=== PATIENT | male | born 1985 | race Caucasian/White ===

== ENCOUNTER 2018-12-30 16:25 | Emergency (ER) | payer OTHER ==
[2018-12-30 16:30] VITALS: RESP 18; TEMP 97.2
[2018-12-30] MEDS ORDERED: PROPARACAINE 0.5% OPHTH DROPS 15 ML BTL BOTH EYES STA (17:20)
--- NOTE | 2018-12-30 18:06 | ED ---
General Adult HPI - General Chief complaint: Eye Problems Stated complaint: FB eye Time Seen by Provider: 12/30/18 16:47 Source: patient, RN notes reviewed, old records reviewed Mode of arrival: EMS Limitations: no limitations - History of Present Illness Initial comments: 33-year-old male patient no pertinent past medical history presents to ED with pain in left eye. 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 Patient has had a foreign object sensation in left eye for approximately 1 hour. Patient is unable to visualize any foreign object. Patient had flushed with normal saline. Patient states the eyes are tearing however states that his visual acuity is at baseline. Patient is not a contact lens user. Patient does not have any other complaints. Systemic: Pt denies fatigue, myalgia, fever/chills, rash. Pt denies weakness, night sweats, weight loss. Neuro: Pt denies headache, visual disturbances, syncope or pre-syncope. HEENT: Pt denies otalgia, rhinorrhea, pharyngitis or notable lymphadenopathy. Cardiopulmonary: Pt denies chest pain, SOB, heart palpitations, dyspnea on exertion. Abdominal/GI: Pt denies abdominal pain, n/v/d. : Pt denies dysuria, burning w/ urination, frequency/urgency. Denies new onset urinary or bowel incontinence. MSK: Pt denies myalgia, loss of strength or function in extremities. Neuro: Pt denies new onset weakness, paresthesias. - Related Data Previous Rx's Medication Instructions Recorded Omeprazole [PriLOSEC] 20 mg PO AC-BID #28 cap 11/13/14 Gentamicin 0.3% Ophth Oint [Gentak 1 applic BOTH EYES Q8H 5 Days #1 12/30/18 0.3% Ophth Oint] tube Allergies Allergy/AdvReac Type Severity Reaction Status Date / Time No Known Allergies Allergy Verified 12/30/18 16:29 Review of Systems ROS Statement: Those systems with pertinent positive or pertinent negative responses have been documented in the HPI. ROS Other: All systems not noted in ROS Statement are negative. Past Medical History Past Medical History: No Reported History History of Any Multi-Drug Resistant Organisms: None Reported Past Surgical History: Cholecystectomy Past Psychological History: No Psychological Hx Reported Smoking Status: Never smoker Past Alcohol Use History: None Reported Past Drug Use History: None Reported General Exam - General Exam Comments Initial Comments: Constitutional: NAD, AOX3, Pt has pleasant affect. HEENT: NC/AT, trachea midline, neck supple, no lymphadenopathy. Posterior pharynx non erythematous, without exudates. External ears appear normal, without discharge. Mucous membranes moist. Eyes PERRLA, EOM intact. Some tearing noted left eye, no injection. Fluorescein stain revealed small corneal abrasion at approximately 3:00. Patient visual acuity 20/20. There is no scleral icterus. No pallor noted. Cardiopulmonary: RRR, no murmurs, rubs or gallops, no JVD noted. Lungs CTAB in anterior and posterior mon. No peripheral edema. Abdominal exam: Abdomen soft and non-distended. Abdomen non-tender to palpation in all 4 quadrants. Bowel sounds active in LLQ. No hepatosplenomegaly. No ecchymosis Neuro: CN II-XII grossly intact. No nuchal rigidity. MSK: No posterior calf tenderness bilaterally, homans sign negative bilaterally. Posterior tibialis and radial pulse +2 bilaterally. Sensation intact in upper and lower extremities. Full active ROM in upper and lower extremities, 5/5 stregnth. Limitations: no limitations Course Vital Signs 12/30/18 12/30/18 16:27 18:14 Temperature 97.2 F L Pulse Rate 91 84 Respiratory 18 18 Rate Blood Pressure 126/82 117/76 O2 Sat by Pulse 98 99 Oximetry Medical Decision Making - Medical Decision Making 33-year-old male patient comes to ED with foreign body sensation after feeling something go into his eye when putting on a mask earlier today. This has been ongoing for approximately one hour. Patient previously flushed with normal saline. Patient felt signs stable, afebrile. Physical exam revealed small corneal abrasion at 3:00. Patient visual acuity baseline, 2020. Patient contact lens user. Patient stated at discharge that foreign body sensation was no longer present. Patient discharged with antibiotic eyedrops. Patient to follow up with primary care provider in 1-2 days. Patient given ophthalmology referral if symptoms persist. Patient to return to ED if new signs or symptoms develop or if condition worsens in any way. Case discussed in depth with Dr. Rosa. Disposition Clinical Impression: Corneal abrasion, left Disposition: HOME SELF-CARE Condition: Good Instructions (If sedation given, give patient instructions): Corneal Abrasion ( ED) Additional Instructions: Patient to adhere to previously discussed treatment plan and will take medication(s) as directed. Patient to follow up with PCP in 1-2 days. Patient to return to ED if symptoms do not improve. Prescriptions: Gentamicin 0.3% Ophth Oint [Gentak 0.3% Ophth Oint] 1 applic BOTH EYES Q8H 5 Days #1 tube Is patient prescribed a controlled substance at d/c from ED?: No Referrals: Anabella Brewer MD [Primary Care Provider] - 1-2 days Marco A Almanzar MD [STAFF PHYSICIAN] - 1-2 days Time of Disposition: 18:06
[2018-12-30 18:15] VITALS: BP 117/76; PULSE 84
== END 2018-12-30 18:14 | disposition home or self-care (01) ==
LOC: EC 16:25
DX: S05.02XA Injury of conjunctiva and corneal abrasion without foreign body, left eye, initial encounter (principal); W22.8XXA Striking against or struck by other objects, initial encounter
CPT/HCPCS: 99284